=== PATIENT | female | born 1955 | race Caucasian/White ===

== ENCOUNTER → 2022-12-05 08:54 | Outpatient (CLI) | payer OTHER, SELFPAY ==
[2022-12-05 09:41] LABS: Add Manual Diff / Slide Review NO; Basophils Absolute Auto 0 /uL (0-100); Basophils Percent Auto 0.5 % (0-2); Eosinophils Absolute Auto 100 /uL (0-450); Eosinophils Percent Auto 2.1 % (2-4); Hematocrit 40.6 % (36-46); Hemoglobin 13.8 g/dL (12.0-16.0); Lymphocytes Absolute Auto 1400 /uL (1100-4500); Lymphocytes Percent Auto 22.4 % (25-40); Mean Corpuscular Hemoglobin 31.8 PG (26-34); Mean Corpuscular Volume 93.5 fL (80-100); Monocytes Absolute Auto 500 /uL (0-900); Monocytes Percent Auto 8.6 % (3-14); Neutrophils Absolute Auto 4200 /uL (1500-7000); Neutrophils Percent Auto 66.4 % (50-75); Platelet Count 227 X10^3/uL (150-400); Red Blood Cell Count 4.34 X10^6/uL (4.0-5.2); White Blood Cell Count 6.3 X10^3/uL (4.5-11.0)
[2022-12-05 09:57] LABS: BUN Creatinine Ratio 15.6 (6-22); Blood Urea Nitrogen 14 mg/dL (7-17); Calcium 9.5 mg/dL (8.4-10.2); Carbon Dioxide 27 mmol/L (22-32); Chloride 107 mmol/L (98-107); Estimated Glomerular Filt Rate > 60 mL/min (>60); Glucose 74 mg/dL (80-110); HEMOLYSIS < 15 (0-50); Potassium 4.2 mmol/L (3.4-5.1); Sodium 140 mmol/L (137-145)
[2022-12-05 11:10] LABS: Appearance Urine UA CLEAR; Bilirubin Urine UA NEGATIVE (NEGATIVE); Color Urine UA YELLOW; Glucose Urine UA NEGATIVE (Negative); Ketones Urine UA NEGATIVE (NEGATIVE); Leukocyte Esterase Urine UA NEGATIVE (NEGATIVE); Nitrite Urine UA NEGATIVE (Negative); Occult Blood Urine UA NEGATIVE (Negative); Protein Urine UA NEGATIVE (Negative); Specific Gravity Urine UA 1.015 (1.000-1.035); Urobilinogen Urine UA 0.2 E.U./dL (0.2)
[2022-12-05 11:15] LABS: Bacteria Urine None Seen; Culture Indicated Urine Cult Not Indicated; RBC Urine None Seen (0-5/HPF); Urine Comments Microscopic Normal; WBC Urine None Seen (0-5/HPF)
[2022-12-06 01:59] LABS: Labcorp Hemoglobin (Hb) A1c 5.8 % (4.8-5.6)
== END ==
PROVIDERS: Referring Provider Orthopaedic Surgery; Visit Provider Orthopaedic Surgery
DX: Z01.818 Encounter for other preprocedural examination (principal); Z01.812 Encounter for preprocedural laboratory examination; R73.9 Hyperglycemia, unspecified; N39.0 Urinary tract infection, site not specified
CPT/HCPCS: 36415; 80048; 81001; 83036; 85025; 93005

== ENCOUNTER 2022-12-27 11:39 | Day surgery (SDC) | payer OTHER, SELFPAY ==
[2022-12-25 10:38] VITALS: BMI 25.2
[2022-12-27] VITALS (10 sets, daily range): BP systolic 89–120; BP diastolic 53–79; PULSE 56–86; RESP 16–22; TEMP 36.1–36.8; O2SAT 95–99; BMI 25.2
--- NOTE | 2022-12-27 06:00 | DI.RAD.S_ITS ---
PROCEDURE: XR HIP W PEL IF DONE RT 2V INDICATIONS: prosthesis placement TECHNIQUE: AP pelvis and lateral view of the right hip acquired. COMPARISON: None. FINDINGS: Bones: Patient is status post right hip arthroplasty, with hardware components in expected positions. The hip joint appears congruent. The visualized bony structures appear intact. Soft tissues: Overlying postoperative changes are noted. No suspicious soft tissue densities. IMPRESSION: Postop changes from right total hip arthroplasty with anatomic right hip alignment. Dictated by: Jericho Roca M.D. on 12/28/2022 at 11:36 Approved by: Jericho Roca M.D. on 12/28/2022 at 11:36
[2022-12-27] MEDS: PREGABALIN 75 MG CAPSULE PO (12:49)
[2022-12-27] MEDS: ACETAMINOPHEN 325 MG TABLET 975 MG PO (12:49)
[2022-12-27] MEDS: CELECOXIB 200 MG CAPSULE PO (12:49)
[2022-12-27] MEDS: VANCOMYCIN 1,000 MG/200 ML PIGGYBACK 200 MG IV (12:50)
[2022-12-27] MEDS: LACTATED RINGERS 1,000 ML 42 ML IV (12:50)
[2022-12-27 12:57] LABS: COVID19 -Nasal RAPID Negative (Negative)
--- NOTE | 2022-12-27 12:59 | PM.PREOP ---
Pre-operative Note COVID-19 COVID-19 status: Negative Interval Note History & Physical reviewed/Exam performed by Physician: Yes Changes to H&P: No
--- NOTE | 2022-12-27 13:00 | PM.OP.1 ---
Operative Date/Time/Diagnoses Date of procedure: 12/27/22 Time of procedure: 13:20 Pre-op diagnosis: Right hip OA Post-op diagnosis: same Procedure & Clinicians Procedure: Right total hip arthroplasty anterior approach Same procedure as scheduled: Yes Indications: The patient has had progressively worsening right hip pain with radiographic changes consistent with arthritis. Non-operative management has failed and the patient has requested total hip replacement. The risks, benefits and alternatives to surgery were discussed with the patient prior to proceeding. Risks discussed included, but were not limited to, failure to relieve pain, leg length discrepancy, dislocation, stiffness, infection, nerve damage, deep venous thrombosis, pulmonary embolism, stroke, coma, heart attack, permanent paralysis and , as well as the potential need for eventual revision of the prosthetic. Surgeon: Tiffanie Denise Blemish Remover: Bushra Arias Anesthesia Type: General and Spinal Operative Notes Findings: Severe right hip osteoarthritis, large anterior arthritic cyst degenerative in the labrum and along the anterior acetabulum, markedly hypertrophied and abnormal labrum, adequate stability, adequate bone Closure Type: primary Specimen(s): none sent Prosthetic devices, grafts, tissues, transplants, or devices: Denise and nephew R3 52, neutral poly liner, size 8 standard offset anthology, 36 x -3 Oxinium femoral head, one 6.5 mm screw Estimated Blood Loss (mL): 250 Blood products transfused: none Procedure in detail: The patient was brought to the operating room. Patient was carefully positioned in the supine position. Time-out was performed and antibiotics were given. Anesthesia was induced. She was positioned in the on the table in order to allow hyperextension of the hip. The right lower extremity was prepped and draped in a standard sterile fashion. An anterior right hip incision was made 1 fingerbreadth lateral to the anterior superior iliac spine and extended distally towards the greater trochanter. Dissection was carried out through skin and subcutaneous tissues. Superficial hemostasis was achieved. The fascia over the tensor fascia hilda was defined and incised with a knife. Two Allis clamps were used to grasp the fascia. Tensor fascia hilda was retracted laterally. A gelpi retractor was placed. Dissection was carried out down along the neck. The circumflex vessels were carefully identified and cauterized with the Aqua Mantis. There was good visualization of the femoral neck. A Cobra was placed superior to the neck and the gluteus fibers were carefully stripped from that superior aspect of the capsule. A 2nd retractor was placed along the inferior aspect of the neck. The rectus insertion along the capsule was partially released. A 3rd retractor that was then gently placed over the rim of the acetabulum under the rectus. Capsule was carefully incised and released from the intertrochanteric line circumferentially superior to the mid sagittal line and inferiorly to the mid sagittal line until the lesser trochanter was palpable. A tag stitch was placed both in the superior and inferior limb of the capsular insertion. Along the acetabulum capsule was also released up to the mid sagittal 12:00 position. A portion of the labrum was resected. A saw was used to perform an osteotomy at the level of the intertrochanteric line and the junction of the superior femoral neck leaving approximately 1 finger breath of residual inferior neck above the lesser trochanter. A PA was used throughout the procedure and was essential for intraoperative positioning and visual adequate visualization in order to allow hemostasis and positioning of the leg and components. A 2nd cut was made along the femoral neck at the base of the head and a napkin ring of neck was removed. Corkscrew was placed in the femoral head and the head was removed without difficulty. Retractors were then repositioned around the acetabulum. Residual labrum was resected and additional osteophytes were removed. A reamer that was 4 mm below the templated size was placed by hand in the acetabulum and it was reamed to centralize the acetabulum. It was then reamed up to 2 under the templated size and fluoroscopy was brought in to confirm the position of the reaming and depth of reaming. I reamed 1 under the anticipated size. A trial cup was placed and noted that it was appropriately sized and fluoroscopy confirmed position and depth. The component was open and inserted without difficulty fluoroscopic imaging was used to confirm that the cup had been adequately seated and was well positioned. It was further stabilized with a single screw. Neutral poly liner was placed. The cup was tested and noted to be stable. Attention was then directed to the femur. The femur was gently hyperextended additional capsular release was performed as needed in order to allow adequate visualization of the proximal femur with elevation of the femur. Patient was placed in a hyperextended slightly adducted position with maximum external rotation. Box osteotome was used to check for any residual neck as well as sclerotic bone along the trochanter. Honaker pepper was placed in the femur. Additional broaching was performed. Canal finder was used to determine the alignment of the canal and position. Size 1 broach was placed. The canal was then appropriately broached up to the templated size as long as there was adequate stability of the broach and serial advancement of the broach without excessive impingement. Specific attention was directed at avoiding varus attempting to direct the distal aspect of the broach more anteriorly and avoiding excessive anteversion. Trial reduction showed acceptable range of motion, good stability, no posterior impingement, yazdanism of leg length and appropriate lateral shuck. I also hyperflexed the hip and checked that there was no impingement anteriorly and there was good stability with flexion, adduction and internal rotation. Marcaine and Exparel were injected.. The stem was placed without difficulty. Repeat trial reduction and x-ray showed acceptable overall position, length, and no evidence of the femoral fracture. Final head was placed. Wound was meticulously irrigated with normal saline. The hip was reduced and additional Exparel and Marcaine were injected. The capsule was closed with interrupted nonabsorbable sutures. The fascia of the tensor was closed with interrupted and running Vicryl. No drain was placed. Any tensor fascia hilda muscle that appeared to be contused or injured which was a minimal amount was carefully resected. Capsule around the tensor was injected with Exparel and Marcaine. The skin was closed with barbed stitches for the subcutaneous tissue and skin. We also used surgical glue. The wound was dressed sterilely. Brief Betadine soak was also used and was meticulously irrigated with normal saline. Patient was transferred to recovery room in satisfactory condition. Complications: none Post-operative Condition: stable Disposition: Acute Care Plan for aftercare: The patient will be maintained on a standard total hip replacement protocol with weight bearing as tolerated and anterior hip precautions. The patient will receive Aspirin and sequential compression devices for DVT prophylaxis. The patient will be discharged home when safe for the home environment.
[2022-12-27] MEDS: CEFAZOLIN 2 GM/100 ML PREMIX 100 ML IV ×2 (14:03→21:00)
[2022-12-27] MEDS: TRANEXAMIC ACID 1,000 MG VIAL 1000 MG INJ ×2 (14:06→16:08)
--- NOTE | 2022-12-27 14:25 | SUR.OPER ---
Supine on padded [place]on table with bilateral legs secured in padded positioning boots and suspended in positioning spars, operative leg in traction per surgeon. Head on one pillow. Arm on non-operative side secured on padded armboard <90 degrees abduction. Arm on operative side padded and resting across chest then secured with tape over sheet. Padded perineal post in place per surgeon.
[2022-12-27] MEDS: BUPIVACAINE 0.25% (PF) 60 ML, EPINEPHrine 0.3 MG INJ (14:40)
[2022-12-27] MEDS: BUPIVACAINE LIPOSOME 266 MG/20 ML VIAL INJ (14:44)
[2022-12-27] MEDS: SODIUM CHLORIDE IRRIG SOLUTION 250 ML, POVIDONE-IODINE SPONGE STICKS 1 APPLIC IRR (14:47)
[2022-12-27] MEDS: IBUPROFEN 400 MG TABLET PO ×2 (17:31→20:54)
[2022-12-27] MEDS: ACETAMINOPHEN 325 MG TABLET 650 MG PO ×2 (17:32→19:30)
[2022-12-27] MEDS: LACTATED RINGERS 1,000 ML 100 ML IV (17:32)
--- NOTE | 2022-12-27 17:48 | PC.NURSE ---
Admission note: Pt arrived from PACU to room 218 at approximately 1700. VSS, dressing CDI. Pt reports numbness of both feet. Pulses present and strong, pt able to move lower extremities without issue. IV contained what appeared to be cloudy substance in IV tubing, LR from PACU hanging. Reported to charge nurse and nurse avionics shop supervisor. J-loop on IV changed and discarded, replaced by new J-loop with saline flush. Pt A&Ox4, no c/o nausea, tolerating general diet. Call light within reach, bed alarm active, VSS. Care ongoing.
[2022-12-27] MEDS: OXYCODONE IR 5 MG TABLET PO (20:22)
[2022-12-27] MEDS: NICOTINE 21 MG PATCH TOP (20:53)
[2022-12-27] MEDS: ASPIRIN EC 81 MG TABLET PO (20:54)
[2022-12-27] MEDS: MAGNESIUM OXIDE 400 MG TABLET PO (20:54)
[2022-12-27] MEDS: DOCUSATE 100 MG CAPSULE PO (21:00)
[2022-12-28 00:30] VITALS: BP 125/63; PULSE 63; RESP 19; TEMP 36.4; O2SAT 99
[2022-12-28] MEDS: IBUPROFEN 400 MG TABLET PO ×3 (02:00→09:11)
[2022-12-28] MEDS: OXYCODONE IR 5 MG TABLET PO ×2 (02:32→09:11)
[2022-12-28 04:59] LABS: Hematocrit 32.2 % (36-46); Hemoglobin 11.1 g/dL (12.0-16.0)
[2022-12-28] MEDS: CEFAZOLIN 2 GM/100 ML PREMIX 100 ML IV (06:10)
[2022-12-28] MEDS: ACETAMINOPHEN 325 MG TABLET 650 MG PO (06:12)
[2022-12-28 06:20] VITALS: BP 103/62; PULSE 70; RESP 20; TEMP 36.5; O2SAT 96
--- NOTE | 2022-12-28 07:06 | P.DS_ITS ---
History of Present Illness History of Present Illness Date Patient Seen: 12/28/22 Time Patient Seen: 07:06 Chief complaint: Right JOSIAH *OPB* Narrative: Operative Date/Time/Diagnoses Date of procedure: 12/27/22 Time of procedure: 13:20 Pre-op diagnosis: Right hip OA Post-op diagnosis: same Procedure & Clinicians Procedure: Right total hip arthroplasty anterior approach Same procedure as scheduled: Yes Indications: The patient has had progressively worsening right hip pain with radiographic changes consistent with arthritis. Non-operative management has failed and the patient has requested total hip replacement. The risks, benefits and alternatives to surgery were discussed with the patient prior to proceeding. Risks discussed included, but were not limited to, failure to relieve pain, leg length discrepancy, dislocation, stiffness, infection, nerve damage, deep venous thrombosis, pulmonary embolism, stroke, coma, heart attack, permanent paralysis and , as well as the potential need for eventual revision of the prosthetic. Surgeon: Tiffanie Denise Roof Promenade Tile Setter: Bushra Arias Anesthesia Type: General and Spinal Operative Notes Findings: Severe right hip osteoarthritis, large anterior arthritic cyst degenerative in the labrum and along the anterior acetabulum, markedly hypertrophied and a bnormal labrum, adequate stability, adequate bone Closure Type: primary Specimen(s): none sent Prosthetic devices, grafts, tissues, transplants, or devices: Denise and nephew R3 52, neutral poly liner, size 8 standard offset anthology, 36 x -3 Oxinium femoral head, one 6.5 mm screw Estimated Blood Loss (mL): 250 Blood products transfused: none Discharge Providers Provider Discharge Date: 12/28/22 Consults: 12/27/22 06:00 Consult to Anesthesiology Routine Comment: Consulting Provider: Anesthesiologist Reason for consultation: Regional block for post operative pain control 12/27/22 17:12 Consult to Discharge Planning Routine Comment: Consult to Physical Therapy Evaluate & Treat Comment: Physician Instructions: post op JOSIAH protocol Discharge provider: Bushra Arias PA-C Summary Hospital Course Discharge Diagnosis: Right hip osteoarthritis, s/p right total hip arthroplasty Hospital Course: Ms Jaquez'jatinder hospital course was unremarkable. On POD# 1 she was feeling well and wanted to go home. She was eating and voiding without difficulty and her pain was well-controlled with oral medication. She had not yet been OOB or evaluated by PT at the time of my visit. Exam Vital Signs (past 8 hours): - 12/28/22 00:30 12/28/22 06:20 Temperature 97.5 F L 97.7 F Pulse Rate 63 70 Respiratory Rate 19 20 Blood Pressure 125/63 103/62 Pulse Oximetry 99 96 Oxygen Flow Rate 0 0 Oxygen Delivery Method Room Air Oxygen Flow Rate 0 Narrative Exam Narrative: 5/5 strength in hip flexors, quadriceps, hamstrings, DF, PF, EHL on right. Sensation to light touch intact throughout RLE. Calf soft, compressible, nontender and without palpable cords or masses. Aquacel dressing intact and with scant bloody drainage. Objective Labs 12/28/22 04:25 Labs: Laboratory Results - last 24 hr 12/27/22 12/28/22 12:25 04:25 Hgb 11.1 L Hct 32.2 L SARS-CoV-2 (PCR) Negative PFSH Medical History (Updated 12/25/22 @ 11:07 by Rosa Reynolds RN) Easy bruisability Osteoarthritis Surgical History (Updated 12/28/22 @ 07:10 by Bushra Arias PA-C) History of ear surgery (~2017) Hx of colonoscopy Hx of laminectomy Hx of tonsillectomy Status post blepharoplasty of both eyes (~08/2022) Social History household members: spouse and children Smoking Status: Current every day smoker alcohol intake: current Discharge Assessment & Plan Assessment and Plan Assessment: Right hip osteoarthritis, s/p right total hip arthroplasty Plan of Treatment: Discharge home after PT if PT agrees. Multimodal pain control, ASA 81mg BID x 6 weeks for VTE prophylaxis, f/u in office in 2 weeks as scheduled. Discharge Plan Discharge Plan Patient Disposition: Home Discharge orders & Medications Discharge Orders: Discharge (Order); Ordered 12/28/22 Ordered By: Bushra Arias Prescriptions: New oxycodone 5 mg Tablet 5 mg PO Q4-6H PRN (Reason: Pain, Moderate (4-6)) Qty: 40 0RF docusate sodium 100 mg Capsule 100 mg PO BID PRN (Reason: constipation) Qty: 60 1RF Continued magnesium 500 mg Tablet 500 mg PO BEDTIME melatonin 10 mg Tablet 5 mg PO BEDTIME PRN (Reason: Insomnia) Follow up/Referrals: Tiffanie Denise MD [Physician] - As previously scheduled (Follow up w/ Evert Vargas PA-C, on 01/08/2023 @ 2:20 pm at [facility] in [place].) Diet/Activity/Treatments Diet: Diet as Tolerated Activity: Weightbearing as tolerated to right leg. Anterior hip precautions. Cold/Heat Therapy: Ice to hip as needed for pain. Skin/Wound/Dressing Care Report to your healthcare provider any signs of infection, such as:: chills, fever, night sweats, unusual drainage and unusual redness Dressing: May shower. Leave Aquacel dressing in place until follow up in office. No bathing or otherwise soaking incision. Call the office if the dressing becomes saturated inside. Visit Report/Discharge Packet Instructions: DI for Hip Replacement Stand Alone Forms: Patient Portal/API, Surgery Discharge Discharge Data Attending Provider: Tiffanie Denise
[2022-12-28] MEDS: DOCUSATE 100 MG CAPSULE PO (09:11)
[2022-12-28] MEDS: ASPIRIN EC 81 MG TABLET PO (09:12)
--- NOTE | 2022-12-28 09:20 | CM.DANOTE ---
Addendum entered by PRAVEENA Pizarro 12/28/22 11:11: ADD: Per PT eval, feel pt can safely d/c home with spouse assist and outpt PT. Spouse arrived bedside and pt agreeable with discharge home and left before lunch. BF Original Note: Patient is a 67 yo female who was admitted on 12/27/22 for RTHA. Pt has [employer] for insurance and her PCP is Antony Feldman. EMR was reviewed. Per Ortho PA, pt tolerated procedure well and has pain managed, tolerating diet, voided independently and can likely d/c home today pending PT eval. SW met bedside with pt and explained role and she confirms she lives at home in [place] with her spouse, who works, and her 12 yo grandson who goes to school. Pt is typically active and independent at baseline, drives, does not use DME and works. Pt denies any hx of HH or SNF. Pt states she is hopeful for home today and spouse will transport and can take time off work if needed. Pt already set up with outpt PT through [facility] and has outpt appointment scheduled. Pt does not anticipate any needs. Plan: SW to follow for PT eval this morning to confirm safe plan of d/c home with spouse assist and outpt PT and any further identified needs. PRAVEENA Pizarro Discharge Planning/Care Management CM Discharge Assessment Start: 12/28/22 09:05 Freq: Status: Active Protocol: Document 12/28/22 09:17 BF (Rec: 12/28/22 09:20 [id number]) Discharge Planning Assessment Assigned Caramel Candy Maker Helper PRAVEENA Marti DPOA/Assigned Designee Name beatriz Yuen Contact Information [phone] Advance Directives? Yes Advance Directives on File No History Provided By Patient,Medical Record Has Patient been admitted in last 30 No days? Prior Living Arrangements House Household Members spouse,children Comment spouse and 12 yo grandson Type of transporation used prior to Drives own vehicle admit Independent with ADL's Yes Is patient alert and oriented? Yes Caregiver for Another Yes: 12 yo grandson Community Services used prior to Physical Therapy admission: Patient/Family Preference OP PT Therapy Comment Already set up with [facility] outpt PT Barriers to Discharge No Discharge Plan Home Community Services Physical Therapy Transportation Arrangement Spouse plans to transport Referrals Initiated None needed Additional Comment Pending PT eval Whiteboard Updated in Patient Room with Yes name and ext. # of Caramel Candy Maker Helper Review Status In Process Please Provide Date Initial DC 12/28/22 Assessment Was Performed Next Review Type Continued Stay Review Pre-Anesthesia Assessment Start: 12/25/22 10:38 Freq: Status: Active Protocol: Document 12/25/22 10:38 CAB (Rec: 12/25/22 11:18 CAB [id number]) Pre-Anesthesia Assessment Preferred Name Susan Patient Information Reviewed Via Phone Assessment Diagnostic Results BMP/CMP,CBC,EKG,Urinalysis Comment Labs/EKG @ 12/05/22 Primary Care Provider Deniz Seen Specialist in Last 12 Months Yes Specialist Seen Opthamologist/Senior Applications Architect, Orthopedist Primary Language Slovenian Brass Bobbin Winder Required No Height 170.18 cm Weight 73.028 kg Body Mass Index (BMI) 25.2 Hearing Ability Normal Visual Assist Glasses Dentition Type Teeth, Natural Present Barriers to Learning None Hx Anesthesia Reactions No Hx Family Anesthesia Reaction No Hx Malignant Hyperthermia No Hx Blood Transfusions No Anesthesia Review Requested No Photographic Double No alcohol intake current alcohol intake frequency a few times a month Smoking Status Current every day smoker Tobacco type cigarettes Smoking packs per day 1 Substance Use Type does not use Pain Present Pain Reported Musculoskeletal Symptoms Abnormal Gait,Difficulty Walking,Joint Pain History of Falling (Recent or History of No ) Patient is completely paralyzed or No completely immobile Mental Status Oriented to own ability Is patient on oxygen? No Does patient have SPENCER/SOB No Hx Sleep Apnea No Currently Taking a Beta Shobha No Can You Climb a Flight of Stairs Without Yes SOB Hx Chest Pain No Hx SOB No Hx Syncope or Dizziness No Anti-Coagulant Therapy No Has a Manager Action No Cardiac Testing No Hx Pacemaker/ICD No Pacemaker Rep Required? No Cardiac Clearance Received Not Applicable Diet Type At Home Regular Dysphagia No Gastrointestinal Symptoms None Urinary Catheter Present No Hx Urinary Self Catheterization No Diabetes No HgbA1C 5.8 Date 12/05/22 Patient No Hx Drug Resistant Organism No Presence of External or Internal Medical No Devices Have you had any close contact with No someone diagnosed with COVID-19? Received a COVID vaccine? Yes Received all doses? No Marital Status Lives With spouse,children Current Living Arrangements House Number of Floors (Floors) One Floor Number of Stairs To Enter/Railing? 2 Support System Spouse Does the Patient Have Assistance After Yes Surgery Patient Discharge Plan Description Return Home Comment Pt advised overnight length of stay per surgeon Feels Safe in Current Environment Yes Been Physically Hurt or Threatened By a No Person in Current Environment Do you have thoughts of harming yourself None or others? Are you currently considering suicide? No Do you have a plan to hurt yourself or No Plan others? Do You Have Any Spiritual Beliefs That No May Affect Your HC Choices? Do You Have Any Cultural Practices That No May Affect Your HC Choices? Comment Delfina Who Can We Speak to About Patient's Care Family, friends Identifying Code for Release of Patient Declines to issue Information Health Care Proxy/Next of Kin Alpa () Health Care Proxy Emergency Contact Name Alpa () Emergency Contact Advance Directives? Yes Advance Directives on File No Requested Patient Bring Advanced Yes Directives DOS Power of Tibco Developer Yes Power of Tibco Developer Name Alpa () Power of Tibco Developer PAC Instructions Do not shave/clip surgical site,Durable medical equipment ,Medications to take/avoid, Nasal antibiotic,No ETOH/ petroleum product on skin DOS, NPO,Post-op transportation,Pre -surgical wash,Sensory aids, Sturdy shoes/comfortable clothes,Do not bring valuables and remove jewelry
--- NOTE | 2022-12-28 10:55 | PC.NURSE ---
Day shift: Patient discharge instructions gone over with patient and spouse. All questions answered and patient verbalized understanding. Patient states all belongings with her. IV d/c'ed. Patient left with CHAD Albright via wheelchair for discharge at 1058am.
--- NOTE | 2022-12-28 11:18 | PT.IIE ---
Current Diagnoses Unilateral primary osteoarthritis, right hip (12/27/22) Presence of unspecified artificial hip joint (12/27/22) Surgery Performed Operation Date: 12/27/22 13:45 Actual Procedures p Total Hip Arthroplasty/Anterior Approach(Right) - Tiffanie Denise MD Surgical History (Last Updated 12/25/22 @ 11:07 by Rosa Reynolds, RN) History of ear surgery (~2017) Hx of colonoscopy Hx of laminectomy Hx of tonsillectomy Status post blepharoplasty of both eyes (~08/2022) Medical History (Last Updated 12/25/22 @ 11:07 by Rosa Reynolds RN) Easy bruisability Osteoarthritis Physical Therapy Inpatient Evaluation/Re-Eval M1 PT/OT-IP Prior Functional Status Start: 12/28/22 11:02 Freq: NEEDED Status: Discharge Protocol: Document 12/28/22 11:03 ES (Rec: 12/28/22 11:18 ES [id number]) Medical Review Prior Functional Status Medical History Reviewed Yes Diet/Fluid Consistency Regular Communication WNL Mobility and Gait Indep without AD Activities of Daily Living and IADL's Indep Social History Household Members spouse,children Living Arrangements House Number of Floors (Floors) One Floor Number of Stairs To Enter/Railing? 2 with single rail Home Environment High Toilet,Walk in Shower Home Equipment Front Wheel Walker,Straight Cane Additional Social History Comment works during the day but can be at home to help as needed. M2 PT-IP Current Condition Start: 12/28/22 11:02 Freq: NEEDED Status: Discharge Protocol: Document 12/28/22 11:03 ES (Rec: 12/28/22 11:18 ES [id number]) Physical Therapy Current Condition Current Condition Evaluation Date 12/28/22 Treatment Diagnosis s/p R anterior JOSIAH Onset Date 12/27/22 M3 PT-IP Subjective Start: 12/28/22 11:02 Freq: NEEDED Status: Discharge Protocol: Document 12/28/22 11:03 ES (Rec: 12/28/22 11:18 ES [id number]) Subjective Physical Therapy Visit Type Type Initial Evaluation Visit Start Time 09:07 Visit Stop Time 09:48 Total Visit Minutes 39 Physical Therapy Visit Comments Patient Comments Patient reported she hadn't gotten out of bed yet because she didn't want to get up without PT there. Had been using bed rawls throughout the night. Patient stated she had some pre-surgery PT and was instructed in how to get in/ out of bed and use a walker. Patient reported having some soreness in her R thigh and buttock, but no pain at the incision. Patient agreeable to get up with PT. M4 PT-IP Mobility and Gait Start: 12/28/22 11:02 Freq: NEEDED Status: Discharge Protocol: Document 12/28/22 11:03 ES (Rec: 12/28/22 11:18 ES [id number]) PT-Bed Mobility Assessment Supine to Sit Supine to Sit Minimal Assistance Scooting Scooting to Edge of Bed Standby Assistance PT-Transfer Assessment Sit to and From Stand Sit to and from Stand Standby Assistance,Use of Upper Extremities Equipment Transfer Assistive Device Gait Belt,Front Wheeled Walker Transfers Transfer Destination Chair Transfer Technique Stand Step Pivot Transfer Ability Level of Assist Standby Assistance,Use of Upper Extremities Comments Mobility Comments Cued for placing R foot forward during sit to/from stand, for hand placement for safety with FWW, and for keeping R foot neutral during turning, with good patient follow-through. Gait Assessment Gait Gait Assistance Required: Standby Assistance Distance (Feet) 350 Able to Maintain Weight Bearing Status Yes During Gait Assistive Devices Assistive Device Gait Belt,Front Wheeled Walker Gait Deviations General Gait Pattern Antalgic Factors Limiting Gait Function Factors Limiting Gait Function Pain Comments Gait Comments Patient initially demonstrated step-to pattern, progressing to step-through pattern with cueing and practice. C/o increased buttock soreness with further ambulation. Stair Climbing Assessment Evaluation Level of Assist On Stairs Standby Assistance Devices Stair Climbing Assistive Devices Right Railing Technique/Endurance Stair Climbing Direction Ascend and Descend Stair Climbing Technique Step to Step Number of Steps Climbed 3 Query Text: Stair Climbing Set # Repetitions (reps) 1 Comments Stair Climbing Comments Able to recall correct sequencing without cues. PT-Balance Assessment Sitting Balance and Reactions Static Sitting Balance Ability Normal Dynamic Sitting Balance Ability Normal Standing Balance and Reactions Static Standing Balance Ability Good Dynamic Standing Balance Ability Good Device Used FWW M5 PT-IP Objective Assessments Start: 12/28/22 11:02 Freq: NEEDED Status: Discharge Protocol: Document 12/28/22 11:03 ES (Rec: 12/28/22 11:18 ES [id number]) Orientation Orientation/Cognition Level of Alertness Alert Orientation Name,Age,Birthday,Month,Date, Year,Day of Week,Place, Situation Language Function Ability No Deficits Noted Safety Awareness Understands Safety Issues Memory Description No Deficits Noted Gross Range of Motion Upper Extremity ROM Assessment Within Functional Limits Lower Extremity ROM Assessment Right Impaired Impairments 2/2 pain/precautions Strength Upper Extremity Strength Assessment Within Functional Limits Lower Extremity Strength Assessment Right Impaired Comments Strength Comments Expected RLE post-op weakness in hip/thigh Coordination Assessment Gross Coordination Gross Coordination WNL Sensation Assessment Sensation Gross Sensation WNL M6 PT-IP Treatment Start: 12/28/22 11:02 Freq: NEEDED Status: Discharge Protocol: Document 12/28/22 11:03 ES (Rec: 12/28/22 11:18 ES [id number]) Physical Therapy Treatment Exercises Exercises Ankle Pumps,Gluteal Sets,Quad Sets,Heel Slides Education Education Provided Precautions,Weight Bearing Status,Post-Op Packet,Safety M7 PT-IP Assessment and Plan Start: 12/28/22 11:02 Freq: NEEDED Status: Discharge Protocol: Document 12/28/22 11:03 ES (Rec: 12/28/22 11:18 ES [id number]) PT Summary Assessment and Plan Potential Rehabilitation Potential Excellent Status of Condition at Evaluation Stable Summary Impairments Pain,ROM,Strength,Bed Mobility ,Transfers,Gait Assessment Summary Patient is a 67 year old female s/p R anterior JOSIAH who demonstrates impaired mobility primarily due to pain. She required min A to move RLE during bed mobility due to difficulty sliding on sheets. She otherwise was at SBA level with FWW, following precautions appropriately. She demonstrated good performance of HEP. She is appropriate to d/c home with family assistance at this time. Frequency of Treatment Frequency Of Treatment Discharge Precautions Anterior Hip Precautions No Hip Extension,No Hip External Rotation Weight Bearing Status Weight Bearing Status Weight Bear as Tolerated Recommendations To Nursing Amount of Assist Needed 1 Person Assist Discharge Recommendations PT Discharge Recommendations Home with Assistance, Outpatient PT Transportation Needs at Discharge Private Vehicle
== END 2022-12-28 10:58 | disposition home or self-care (01) ==
LOC: OR 11:42 → AC 11:42
PROVIDERS: Referring Provider Orthopaedic Surgery; Visit Provider Orthopaedic Surgery
PROC: (CPT 27130; principal; 2022-12-27 13:45)
DX: M16.11 Unilateral primary osteoarthritis, right hip (principal); Z20.822 Contact with and (suspected) exposure to COVID-19
CPT/HCPCS: 27130; 36415; 73502; 85014; 85018; 87635; 97161; C1776; C9803; C9290; J0171; J0690; J1170; J2405; J2704; J3010